=== PATIENT | female | born 1970 | race Caucasian/White ===

== ENCOUNTER 2023-09-29 13:14 | Observation (INO) | payer MEDICAID, OTHER ==
[~2023-09-29] VITALS: Ht 157.5 cm; Wt 72.3 kg
[2023-09-29 13:47] LABS: BASO # 0.1 10^3/uL (0.0-0.2); BASO % 1.1 % (0.0-1.0); EOS # 0.2 10^3/uL (0.0-0.5); EOS % 2.7 % (0.0-3.0); LYMPH # 3.7 10^3/uL (1.5-5.0); LYMPH % 49.3 % (24.0-44.0); MEAN CORPUSCULAR HEMOGLOBIN 31.6 pg (27.0-33.0); MEAN CORPUSCULAR HGB CONC 34.2 g/dl (32.0-36.5); MEAN CORPUSCULAR VOLUME 92.5 fl (80.0-96.0); MONO # 0.5 10^3/uL (0.0-0.8); MONO % 6.2 % (2.0-8.0); NEUTROPHILS % 39.8 % (36.0-66.0); PLATELET COUNT, AUTOMATED 391 10^3/uL (150-450); RED BLOOD COUNT 4.11 10^6/uL (4.00-5.40); WHITE BLOOD COUNT 7.5 10^3/uL (4.0-10.0)
[2023-09-29 14:10] LABS: ETHYL ALCOHOL (ETHANOL) 0.299 % (0.000-0.010)
[2023-09-29 14:12] LABS: BLOOD UREA NITROGEN 11 MG/DL (9-23); CALCIUM LEVEL 7.7 MG/DL (8.5-10.1); CARBON DIOXIDE LEVEL 27 MMOL/L (20-31); CHLORIDE LEVEL 110 MMOL/L (98-107); CREATININE FOR GFR 0.88 MG/DL (0.55-1.30); GLOMERULAR FILTRATION RATE > 60.0 (>51); GLUCOSE, FASTING 95 MG/DL (60-100); POTASSIUM SERUM 4.4 MMOL/L (3.5-5.1); SODIUM LEVEL 142 MMOL/L (136-145)
[2023-09-29] MEDS ORDERED: ISOVUE-370 76% 100ML VIAL As Ordered ONE (18:45)
[2023-09-29] MEDS: NS 1,000 ML IV ONE ×2 (18:49→20:25)
[2023-09-29 19:04] LABS: ALBUMIN 3.2 G/DL (3.2-5.2); ALKALINE PHOSPHATASE 119 U/L (46-116); ALT/SGPT 29 U/L (7.0-40); AST/SGOT 36 U/L (<34); BILIRUBIN,DIRECT < 0.1 MG/DL (<0.4); BILIRUBIN,TOTAL 0.2 MG/DL (0.3-1.2); CK-MB VALUE MASS 7.8 NG/ML (<3.6); TOTAL PROTEIN 6.1 G/DL (5.7-8.2)
[2023-09-29 19:05] LABS: CPK CREATINE PHOSPHOKINASE 875 U/L (34-145); MB/CK RELATIVE INDEX 0.89 (< OR =4)
[2023-09-29] MEDS ORDERED: ACETAMINOPHEN TAB 650MG DOSE (2X325MG) PO PRN (20:20)
[2023-09-29] MEDS ORDERED: LORazepam 2 MG TAB PO PRN (20:20)
[2023-09-29] MEDS ORDERED: ALBUTEROL 90 MCG/ACT 8GM HFA INHALER INH PRN (20:40)
[2023-09-29] MEDS ORDERED: FLUO60TA6 PO (21:47)
[2023-09-29] MEDS ORDERED: LAMI1TAB9 PO (21:47)
[2023-09-29] MEDS ORDERED: ATOR1TAB19 PO (21:47)
[2023-09-29] MEDS ORDERED: VENTAER INH (21:48)
[2023-09-29] MEDS ORDERED: HOME MED LIST COMPLETE! XX SCH (21:50)
[2023-09-29 22:20] VITALS: BP 112/62; TEMP 97; O2SAT 98
[2023-09-29] MEDS: MULTIVITAMIN -ADULT INJECTION 10 ML, THIAMINE INJection 100 MG, FOLIC ACID 1 MG in NS 1... IV ONE (22:25)
[2023-09-29 23:00] VITALS: BP 94/54; TEMP 97.2; O2SAT 97
[2023-09-29 23:04] LABS: AMPHETAMINES LEVEL URINE NEGATIVE (NEGATIVE)
[2023-09-29 23:05] LABS: BARBITURATES URINE NEGATIVE (NEGATIVE); BENZODIAZEPINES URINE NEGATIVE (NEGATIVE); COCAINE METABOLITE URINE NEGATIVE (NEGATIVE); METHADONE URINE NEGATIVE (NEGATIVE); OPIATES URINE NEGATIVE (NEGATIVE); PHENCYCLIDINE URINE NEGATIVE (NEGATIVE)
[2023-09-29 23:11] LABS: CANNABINOIDS URINE POSITIVE (NEGATIVE)
[2023-09-30 04:40] VITALS: BP 109/68; TEMP 97.6; O2SAT 98
[2023-09-30 06:00] VITALS: BP 109/68
[2023-09-30 07:00] LABS: HEMATOCRIT 38.7 % (36.0-47.0); HEMOGLOBIN 12.9 g/dl (12.0-15.5); MEAN CORPUSCULAR HEMOGLOBIN 31.4 pg (27.0-33.0); MEAN CORPUSCULAR HGB CONC 33.3 g/dl (32.0-36.5); MEAN CORPUSCULAR VOLUME 94.2 fl (80.0-96.0); PLATELET COUNT, AUTOMATED 375 10^3/uL (150-450); RED BLOOD COUNT 4.11 10^6/uL (4.00-5.40); WHITE BLOOD COUNT 7.7 10^3/uL (4.0-10.0)
[2023-09-30 07:29] LABS: ALBUMIN 2.8 G/DL (3.2-5.2); ALKALINE PHOSPHATASE 113 U/L (46-116); ALT/SGPT 24 U/L (7.0-40); AST/SGOT 27 U/L (<34); BILIRUBIN,TOTAL 0.2 MG/DL (0.3-1.2); BLOOD UREA NITROGEN 15 MG/DL (9-23); CALCIUM LEVEL 7.4 MG/DL (8.5-10.1); CARBON DIOXIDE LEVEL 25 MMOL/L (20-31); CHLORIDE LEVEL 112 MMOL/L (98-107); CREATININE FOR GFR 0.62 MG/DL (0.55-1.30); GLOMERULAR FILTRATION RATE > 60.0 (>51); GLUCOSE, FASTING 77 MG/DL (60-100); POTASSIUM SERUM 4.7 MMOL/L (3.5-5.1); SODIUM LEVEL 142 MMOL/L (136-145); TOTAL PROTEIN 5.5 G/DL (5.7-8.2)
[2023-09-30 07:44] VITALS: BP 114/56; TEMP 97.4; O2SAT 97
[2023-09-30 08:00] VITALS: BP 114/56
[2023-09-30] MEDS: lamoTRIgine 100MG TAB PO SCH (08:17)
[2023-09-30] MEDS: FOLIC ACID 1MG TAB PO SCH (08:18)
[2023-09-30] MEDS: MULTIVITAMINS/MINERALS THERAP 1 TAB PO SCH (08:18)
[2023-09-30] MEDS: THIAMINE 100 MG TAB PO SCH (08:18)
[2023-09-30] MEDS: ATORVASTATIN 10 MG TAB PO SCH (08:18)
[2023-09-30] MEDS: FLUoxetine 20MG CAP PO SCH (08:18)
[2023-09-30] MEDS: ENOXAPARIN 40MG/0.4ML SYRINGE (J1650 PER 10MG) SC SCH (08:18)
[2023-09-30] MEDS: LR 1,000 ML IV SCH (08:19)
[2023-09-30 09:18] VITALS: O2SAT 95
== END 2023-09-30 11:24 | disposition home or self-care (01) ==
LOC: M ED 13:14 → EDBD 13:14 → INTOOBSV 20:17 → M ED INP 20:17 → M PCU 22:18
PROVIDERS: ADMIT Internal Medicine; ATTEND Internal Medicine Nephrology
DX: I95.89 Other hypotension (principal); E86.0 Dehydration; F10.129 Alcohol abuse with intoxication, unspecified; K70.30 Alcoholic cirrhosis of liver without ascites; W19.XXXA Unspecified fall, initial encounter; Y92.9 Unspecified place or not applicable; Y93.9 Activity, unspecified; Y99.9 Unspecified external cause status; F31.9 Bipolar disorder, unspecified; F43.10 Post-traumatic stress disorder, unspecified; K82.1 Hydrops of gallbladder; J43.2 Centrilobular emphysema; F19.10 Other psychoactive substance abuse, uncomplicated; F17.200 Nicotine dependence, unspecified, uncomplicated; J44.9 Chronic obstructive pulmonary disease, unspecified; M48.061 Spinal stenosis, lumbar region without neurogenic claudication; K42.9 Umbilical hernia without obstruction or gangrene; Z79.899 Other long term (current) drug therapy
CPT/HCPCS: 36415; 70450; 71260; 72125; 73060; 73080; 73090; 73130; 74177; 80048; 80053; 80076; 80307; 82077; 82550; 82553; 83605; 83735; 84484; 85025; 85027; 87040; 93005; 93041; 94760; 96361; 96365; 96366; 96372; 99285; J1650; J3411; Q9967